=== PATIENT | female | born 1995 | race Caucasian/White ===

== ENCOUNTER 2022-08-25 21:15 | Emergency (ER) | payer BC ==
--- NOTE | 2022-08-25 21:44 | NUR ---
CALLED TO TRIAGE NOT IN WAITING ROOM
== END 2022-08-25 21:54 | disposition left against medical advice (07) ==
LOC: ER 21:20
DX: Z53.21 Procedure and treatment not carried out due to patient leaving prior to being seen by health care provider (principal)